=== PATIENT | female | born 1990 | race Caucasian/White ===

== ENCOUNTER 2021-07-08 14:04 | Emergency (ER) | payer OTHER ==
[~2021-07-08] VITALS: Ht 157.5 cm; Wt 68.2 kg
[2021-07-08 15:01] VITALS: BP 103/50
[2021-07-08] MEDS ORDERED: DIVA-80 PO (15:16)
[2021-07-08] MEDS ORDERED: OLAN10TA74 PO (15:16)
[2021-07-08] MEDS ORDERED: METO25XL PO (15:16)
[2021-07-08] MEDS ORDERED: NALT50TA6 PO (15:16)
[2021-07-08] MEDS ORDERED: HYD50 PO (15:16)
[2021-07-08] MEDS ORDERED: FLUV50 PO (15:16)
[2021-07-08] MEDS ORDERED: CYAN500T9 PO (15:16)
[2021-07-08] MEDS ORDERED: [UNRECOGNIZED DRUG - CODE] PO (15:16)
[2021-07-08] MEDS ORDERED: ZIPR40CA2 PO (15:16)
[2021-07-08] MEDS ORDERED: DESM0.2T29 PO (15:16)
[2021-07-08] MEDS ORDERED: BUSP15 PO (15:16)
[2021-07-08] MEDS ORDERED: TRAZ-257 PO (15:16)
[2021-07-08] MEDS ORDERED: LEVO100 PO (15:16)
[2021-07-08] MEDS ORDERED: LURA40TA2 PO (15:16)
[2021-07-08 15:35] LABS: BASOPHILS % (AUTO) 0.3 % (0.0-2.0); HEMATOCRIT 39.3 % (36-46); HEMOGLOBIN 13.1 g/dL (12.0-16.0); LYMPHOCYTES # (AUTO) 2.2 K/uL (1.0-4.8); LYMPHOCYTES % (AUTO) 34.5 % (22.0-44.0); MEAN CORPUSCULAR HEMOGLOBIN 31.9 pg (26.0-34.0); MEAN CORPUSCULAR HGB CONC 33.4 G/dL (31.0-37.0); MEAN CORPUSCULAR VOLUME 96 fL (80-100); MONOCYTES # (AUTO) 0.6 K/uL (0.1-1.0); MONOCYTES % (AUTO) 9.6 % (2.0-9.0); NEUTROPHILS # (AUTO) 3.4 K/uL (1.8-7.7); NEUTROPHILS % (AUTO) 53.6 % (40.0-70.0); PLATELET COUNT (AUTO) 188 K/uL (150-450); RED BLOOD CELL COUNT(AUTO) 4.12 MIL/uL (4.00-5.20); RED CELL DISTRIBUTION WIDTH 12.7 % (11.5-14.5)
[2021-07-08 15:37] LABS: COVID AG,FIA SOURCE NASOPHARYNGEAL
[2021-07-08 15:39] LABS: GLUCOSE,POINT OF CARE 118 MG/DL (70-110)
[2021-07-08 15:41] LABS: ANION GAP 8 mmol/L (8-16); CALCIUM, TOTAL 8.1 mg/dL (8.8-10.5); CARBON DIOXIDE 24 mmol/L (22-29); CHLORIDE 108 mmol/L (98-107); CREATININE 0.82 mg/dL (0.60-1.30); GLOMERULAR FILTR. RATE CALC > 60 mL/min (>60); GLUCOSE,RANDOM 117 mg/dL (70-110); POTASSIUM 3.9 mmol/L (3.5-5.1); SODIUM SERUM 140 mmol/L (136-145); UREA NITROGEN, BLOOD 20 mg/dL (7-18)
[2021-07-08 15:48] LABS: ALANINE AMINOTRANSFERASE 20 U/L (12-78); ALBUMIN 3.1 g/dL (3.4-5.0); ALKALINE PHOSPHATASE 42 U/L (46-116); ASPARTATE AMINOTRANSFERASE 13 U/L (15-37); BILIRUBIN,TOTAL 0.1 mg/dL (0.1-1.0); TOTAL PROTEIN, SERUM 6.8 g/dL (6.4-8.2); VALPROIC ACID 9 mcg/mL (50-100)
== END 2021-07-08 18:51 | disposition home or self-care (01) ==
LOC: EMS 14:04
DX: F84.0 Autistic disorder (principal); E11.9 Type 2 diabetes mellitus without complications; F79 Unspecified intellectual disabilities; G80.9 Cerebral palsy, unspecified; Z20.822 Contact with and (suspected) exposure to COVID-19; Z79.899 Other long term (current) drug therapy
CPT/HCPCS: 36415; 80053; 80164; 82962; 85025; 87426; 99285; G0480